=== PATIENT | male | born 1945 | race Caucasian/White ===

== ENCOUNTER 2019-07-28 05:46 | Day surgery (SDC) | payer OTHER ==
[~2019-07-28] VITALS: Ht 170.2 cm; Wt 74.0 kg
[2019-07-28] VITALS (11 sets, daily range): BP systolic 96–131; BP diastolic 53–78; PULSE 63–82; RESP 10–17; Ht 170.2 cm; Wt 74.0 kg
[~2019-07-28 05:46] MED LIST: ALLO300T2 PO; AMLO2.5T78 PO; BICA50TA47 PO; POTA15TA PO; TAMS-14 PO
[2019-07-28] MEDS ORDERED: BUPIVACAINE 0.25% (MPF) 30 ML INJ ONE ×2 (06:59→08:29)
[2019-07-28] MEDS ORDERED: EPHEDrine 25 MG/5 ML SYG ONE (07:38)
[2019-07-28] MEDS ORDERED: ROPIVACAINE 0.5 % 30 ML VIAL ONE (07:38)
[2019-07-28] MEDS ORDERED: ROCURONIUM 50 MG INJ ONE (07:38)
[2019-07-28] MEDS ORDERED: PROPOFOL 20 ML ONE (07:38)
[2019-07-28] MEDS ORDERED: CEFAZOLIN 1 GM INJ ONE (07:38)
[2019-07-28] MEDS ORDERED: FENTAnyl 50 MCG/ML VIAL ONE (07:38)
[2019-07-28] MEDS ORDERED: MIDAZOLAM 1 MG/ML 2 ML INJ ONE (07:38)
[2019-07-28] MEDS ORDERED: KETOROLAC 30 MG INJ ONE (08:19)
[2019-07-28] MEDS ORDERED: ONDANSETRON 4 MG INJ ONE (08:19)
[2019-07-28] MEDS ORDERED: DEXAMETHASONE 4 MG/ML 5 ML INJ ONE (08:19)
[2019-07-28] MEDS ORDERED: METOCLOPRAMIDE 10 MG INJ ONE (08:19)
[2019-07-28] MEDS ORDERED: METOCLOPRAMIDE 10 MG INJ IV PRN (08:30)
[2019-07-28] MEDS ORDERED: DIPHENHYDRAMINE 50 MG INJ IV PRN (08:30)
[2019-07-28] MEDS ORDERED: ONDANSETRON 4 MG INJ IV PRN ×2 (08:30→09:00)
[2019-07-28] MEDS ORDERED: HYDROmorphONE 1 MG/5 ML IV SYRINGE IV PRN ×3 (08:30)
[2019-07-28] MEDS ORDERED: FENTAnyl 50 MCG/ML VIAL IV PRN ×3 (08:30)
[2019-07-28] MEDS ORDERED: MEPERIDINE 25 MG INJ IV PRN (08:30)
[2019-07-28] MEDS ORDERED: OXYCODONE/ACETAMINOPHEN (5/325) TAB PO PRN ×3 (08:30→09:00)
[2019-07-28] MEDS ORDERED: SUGAMMADEX SODIUM 200 MG/2 ML VIAL IV ONE (08:52)
[2019-07-28] MEDS ORDERED: morphine 2 MG INJ IV PRN (09:00)
== END 2019-07-28 10:45 | disposition home or self-care (01) ==
LOC: SDS 05:46
PROVIDERS: ATTEND Surgery
DX: K40.20 Bilateral inguinal hernia, without obstruction or gangrene, not specified as recurrent (principal); I10 Essential (primary) hypertension; E78.5 Hyperlipidemia, unspecified; Z87.891 Personal history of nicotine dependence
CPT/HCPCS: 49505; C1781; J1100; J1885; J2250; J2405; J2765; J2795; J3010; Z7512; Z7610; J0690